=== PATIENT | male | born 1970 | race African-American/Black ===

== ENCOUNTER 2018-11-22 18:31 | Emergency (ER) | payer MEDICAID ==
[~2018-11-22] VITALS: Ht 182.9 cm; Wt 86.2 kg
[2018-11-22 18:46] VITALS: BP 127/78
[2018-11-22] MEDS ORDERED: NEOMYCIN-BACITRACIN-POLYM 15GM TOP OINT TOP ONE (21:30)
[2018-11-22] MEDS ORDERED: IBUPROFEN 800 MG TAB PO ONE (21:30)
[2018-11-22] MEDS ORDERED: BACITRACIN TOP OINT 1 UD PKG TOP ONE (21:30)
[2018-11-22] MEDS ORDERED: LIDOCAINE 1% HCL (LOCAL ANESTH.) INJ 20ML MDV ID ONE (21:30)
[2018-11-22] MEDS ORDERED: TETANUS-DIPTH-ACEL PERTUSSIS 0.5ML SYRG IM ONE (21:45)
== END 2018-11-22 22:25 | disposition home or self-care (01) ==
LOC: ER 18:38
DX: S71.112A Laceration without foreign body, left thigh, initial encounter (principal); X99.0XXA Assault by sharp glass, initial encounter; Y93.89 Activity, other specified; Y92.098 Other place in other non-institutional residence as the place of occurrence of the external cause; Y99.8 Other external cause status
CPT/HCPCS: 12001; 73552; 90471; 90715; 99284; J2001